=== PATIENT | male | born 2000 | race Asian ===

== ENCOUNTER 2023-01-18 16:21 | Emergency (ER) | payer OTHER ==
[~2023-01-18] VITALS: Ht 177.8 cm; Wt 91.1 kg
[2023-01-18] MEDS ORDERED: IBUPROFEN 800 MG TAB PO ONE (20:55)
[2023-01-18 20:57] VITALS: BP 122/76; TEMP 96.8; O2SAT 100
== END 2023-01-18 21:00 | disposition home or self-care (01) ==
LOC: M ED 16:21
DX: S09.90XA Unspecified injury of head, initial encounter (principal); W20.8XXA Other cause of strike by thrown, projected or falling object, initial encounter; Y99.1 Military activity

== ENCOUNTER → 2023-05-03 | Outpatient (CLI) | payer OTHER ==
[~2023-05-03] MED LIST: FLON27.5 NARES; IBUP-1022 PO
== END ==
LOC: M PLAIMG 12:56
PROVIDERS: ATTEND Physician Assistant
DX: R51.9 Headache, unspecified (principal); S06.9X9A Unspecified intracranial injury with loss of consciousness of unspecified duration, initial encounter; H53.71 Glare sensitivity; X58.XXXA Exposure to other specified factors, initial encounter; Y92.9 Unspecified place or not applicable; Y93.9 Activity, unspecified; Y99.9 Unspecified external cause status

== ENCOUNTER → 2023-10-05 | Outpatient (CLI) | payer OTHER | LOC: M RAD 06:11 | PROVIDERS: ATTEND Pain Medicine Interventional Pain Medicine | DX: M54.16 Radiculopathy, lumbar region (principal) ==

== ENCOUNTER → 2023-10-06 | Outpatient (REF) | LOC: M PLAIMG 10:02 | PROVIDERS: ATTEND Internal Medicine | DX: R52 Pain, unspecified (principal) ==